=== PATIENT | male | born 2000 | race Caucasian/White ===

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

== ENCOUNTER → 2018-04-30 | Outpatient (CLI) | payer OTHER ==
--- NOTE | 2018-05-01 09:51 | NM ---
EXAMINATION TYPE: NM thyroid image w uptake DATE OF EXAM: 05/01/2018 COMPARISON: Ultrasound 10/01/2017 HISTORY: Thyroiditis TECHNIQUE: Thyroid iodine uptake is calculated and images performed after the oral administration of 311 uCi 1-123 Capsule. FINDINGS: There is normal distribution of activity throughout the gland. The 4 hour iodine uptake is calculated at 11.6% (normal range 8-14%). The 24-hour iodine uptake is calculated at 23.7% (normal r marquez 15-35%). IMPRESSION: Normal thyroid scan and uptake.
== END | disposition home or self-care (01) ==
LOC: RADNMMAIN 08:51
PROVIDERS: ATTEND Family Medicine
DX: E06.5 Other chronic thyroiditis (principal)
CPT/HCPCS: 78014; A9516